=== PATIENT | female | born 1945 | race Caucasian/White ===

== ENCOUNTER 2017-05-31 08:30 | Outpatient (CLI) | payer OTHER | END 2017-05-31 20:53 | disposition home or self-care (01) | LOC: SMA 08:30 | PROVIDERS: ATTEND Family Medicine | DX: Z12.31 Encounter for screening mammogram for malignant neoplasm of breast (principal); N64.89 Other specified disorders of breast; R92.1 Mammographic calcification found on diagnostic imaging of breast | CPT/HCPCS: 77067 ==

== ENCOUNTER 2018-06-29 11:03 | Outpatient (CLI) | payer OTHER | END 2018-06-29 20:54 | disposition home or self-care (01) | LOC: SMA 11:03 | PROVIDERS: ATTEND Family Medicine | DX: Z12.31 Encounter for screening mammogram for malignant neoplasm of breast (principal) | CPT/HCPCS: 77067 ==